=== PATIENT | female | born 1940 | race Caucasian/White ===

== ENCOUNTER 2017-01-15 12:35 | Emergency (ER) | payer MEDICARE ==
[2017-01-15] MEDS ORDERED: Ibuprofen 800 MG TAB ONE (13:15)
--- NOTE | 2017-01-15 13:44 | RAD ---
EXAM: RIGHT FOOT 3 VIEWS: HISTORY: Injury. Pain. COMPARISON: None. FINDINGS: There is midfoot soft tissue swelling. Mild degenerative change of the talonavicular joint space. Lisfranc alignment is maintained. No fracture. IMPRESSION: Nonspecific midfoot soft tissue swelling. No fracture. POS: [facility]
== END 2017-01-15 14:05 | disposition home or self-care (01) ==
LOC: BURERS 12:35
DX: S93.601A Unspecified sprain of right foot, initial encounter (principal); I10 Essential (primary) hypertension; Z87.891 Personal history of nicotine dependence; Z79.899 Other long term (current) drug therapy; W20.8XXA Other cause of strike by thrown, projected or falling object, initial encounter
CPT/HCPCS: 11740

== ENCOUNTER 2017-01-22 10:45 | Emergency (ER) | payer MEDICARE ==
[2017-01-22] MEDS ORDERED: Enoxaparin Sodium 100 MG/ML SYRINGE ONE (11:07)
[2017-01-22] MEDS ORDERED: Meclizine HCl 25 MG TAB ONE (11:21)
== END 2017-01-22 11:42 | disposition short-term general hospital (02) ==
LOC: BURERS 10:45
DX: M79.661 Pain in right lower leg (principal); I10 Essential (primary) hypertension; Z87.891 Personal history of nicotine dependence; Z79.899 Other long term (current) drug therapy
CPT/HCPCS: 94760; 96372; J1650

== ENCOUNTER 2017-01-26 11:04 | Outpatient (CLI) | payer MEDICARE ==
[2017-01-26 17:36] LABS: ALT (SGPT) 16 U/L (0-55); AST (SGOT) 21 U/L (5-34); Albumin 4.3 g/dL (3.4-4.8); Alkaline Phosphatase 61 U/L (40-150); Anion Gap 13 mmol/L (10-20); BUN (Urea Nitrogen) 17 mg/dL (9.8-20.1); Bilirubin, Total 0.6 mg/dL (0.2-1.2); Calc. Creatinine Clearance 0 mL/min (70-130); Calcium 9.7 mg/dL (7.8-10.44); Carbon Dioxide 23 mmol/L (23-31); Chloride 110 mmol/L (98-107); Cholesterol 237 mg/dL (< 200 Desired); Estimated GFR-MDRD 49; Globulin 2.6 g/dL (2.4-3.5); Glucose 89 mg/dL (83-110); HDL Cholesterol 59 mg/dL (>60 Neg Risk); LDL Cholesterol, Calculated 158 mg/dL; Potassium 4.4 mmol/L (3.5-5.1); Protein, Total 6.9 g/dL (5.8-8.1); Sodium 142 mmol/L (136-145); Triglycerides 99 mg/dL (Less than 150)
== END 2017-01-26 11:05 | disposition home or self-care (01) ==
LOC: LABLEX 11:04
PROVIDERS: ATTEND Family Medicine
DX: E78.5 Hyperlipidemia, unspecified (principal); I10 Essential (primary) hypertension
CPT/HCPCS: 80053; 80061

== ENCOUNTER 2017-05-11 10:38 | Outpatient (CLI) | payer MEDICARE ==
--- NOTE | 2017-05-11 21:22 | RAD ---
RIGHT FOOT THREE VIEWS 05/11/17 No fracture, recent or remote was seen. There is some cortical thickening along the shafts of the th ird and fourth metatarsals which is probably either venous stasis or age related. It does not appear acute. There are no areas of bony destruction. IMPRESSION: No acute bony finding. POS: [facility]
== END 2017-05-11 10:39 | disposition home or self-care (01) ==
LOC: BURRAD 10:38
PROVIDERS: ATTEND Family Medicine
DX: S99.921A Unspecified injury of right foot, initial encounter (principal); M79.671 Pain in right foot; M79.89 Other specified soft tissue disorders

== ENCOUNTER 2018-05-31 09:15 | Emergency (ER) | payer MEDICARE ==
[2018-05-31] MEDS ORDERED: Sulfameth/Trimethoprim DS 800-160mg TAB ONE (09:42)
[2018-05-31 09:56] LABS: Bilirubin Negative (Negative); Blood, Urine Negative (Negative); Clarity Clear (Clear); Glucose, Urine (Dipstick) Negative (Negative); Leukocyte Small (Negative); Nitrite Negative (Negative); Protein, Urine (Dipstick) Negative (Neg-Trace); Urobilinogen 0.2 mg/dL (0.2-1.0)
[2018-05-31 10:02] LABS: Bacteria/HPF Rare-Few HPF (None Seen); RBC/HPF None Seen HPF (0-3); Squamous Epithelial 0-3 HPF (0-3); WBC/HPF 0-3 HPF (0-3)
[2018-05-31 10:10] LABS: Specific Gravity, Urine 1.008 (1.005-1.030)
== END 2018-05-31 10:05 | disposition home or self-care (01) ==
LOC: BURERS 09:15
DX: K57.92 Diverticulitis of intestine, part unspecified, without perforation or abscess without bleeding (principal); E78.5 Hyperlipidemia, unspecified; I10 Essential (primary) hypertension; Z87.891 Personal history of nicotine dependence; Z79.899 Other long term (current) drug therapy
CPT/HCPCS: 81015; 99284